=== PATIENT | female | born 1975 | race Caucasian/White ===

== ENCOUNTER 2025-01-13 10:36 | Outpatient (CLI) | payer BC | END 2025-01-13 10:37 | disposition home or self-care (01) | LOC: SCSRAD 10:36 | PROVIDERS: ATTEND Orthopaedic Surgery | DX: M54.50 Low back pain, unspecified (principal); M47.816 Spondylosis without myelopathy or radiculopathy, lumbar region; Z98.890 Other specified postprocedural states | CPT/HCPCS: 72100 ==